=== PATIENT | male | born 1965 | race Caucasian/White ===

== ENCOUNTER 2017-08-16 08:40 | Day surgery (SDC) | payer OTHER ==
[2017-08-16] MEDS ORDERED: FENTAnyl 50 MCG/ML VIAL (10:45)
[2017-08-16] MEDS ORDERED: MIDAZOLAM 1 MG/ML 2 ML INJ ×2 (10:45)
== END 2017-08-16 11:16 | disposition home or self-care (01) ==
LOC: SDS 08:40 → GIL 11:16
DX: Z12.11 Encounter for screening for malignant neoplasm of colon (principal)
CPT/HCPCS: 45378